=== PATIENT | female | born 1990 | race Hispanic/Latino ===

== ENCOUNTER 2017-11-29 16:47 | Observation (INO) | payer BC ==
[2018-01-11] MEDS ORDERED: EUTIROX PO (11:42)
[2018-01-11] MEDS ORDERED: PREN-154 PO (11:42)
[2018-01-11] MEDS ORDERED: OMEP-272 PO (11:42)
== END 2017-11-29 18:06 | disposition home or self-care (01) ==
LOC: LDH 16:47
PROVIDERS: ADMIT Obstetrics & Gynecology; ATTEND Obstetrics & Gynecology
DX: O36.8130 Decreased fetal movements, third trimester, not applicable or unspecified (principal); Z86.32 Personal history of gestational diabetes; Z3A.38 38 weeks gestation of pregnancy
CPT/HCPCS: 59025; 76819; G0378 ×2

== ENCOUNTER 2017-12-05 12:16 | Inpatient (IN) | payer BC ==
[~2017-12-05] VITALS: Ht 162.6 cm; Wt 78.9 kg
[2017-12-05] MEDS ORDERED: LACTATED RINGERS 1000ML 1,000 ML IV PRN (12:23)
[2017-12-05] MEDS ORDERED: DINOPROSTONE 10 MG VAGINAL SUPP VG SCH (12:30)
[2017-12-05] MEDS ORDERED: OXYTOCIN-LR 20 UNITS/1000 ML 1,000 ML IV SCH (12:30)
[2017-12-05] MEDS ORDERED: LACTATED RINGERS 1000ML 1,000 ML IV ONE (12:37)
[2017-12-05 13:39] LABS: HEMATOCRIT 36.1 % (36-48); MEAN CORPUSCULAR HEMOGLOBIN 31.8 pg (27.0-33.0); MEAN CORPUSCULAR HGB CONC 35.2 g/dL (32.0-36.0); MEAN CORPUSCULAR VOLUME 90.3 fL (79-99); PLATELET COUNT (AUTO) 113 K/uL (130-400); RED CELL DISTRIBUTION WIDTH 13.8 % (11.0-15.5); WHITE BLOOD COUNT (AUTO) 7.2 K/uL (4.8-10.8)
[2017-12-05 14:36] LABS: BASOPHILS % (AUTO) 0.6 % (0.0-5.0); HEMATOCRIT 37.1 % (36-48); LYMPHOCYTES % (AUTO) 20.4 % (21.0-51.0); MEAN CORPUSCULAR HEMOGLOBIN 31.6 pg (27.0-33.0); MEAN CORPUSCULAR HGB CONC 34.8 g/dL (32.0-36.0); MEAN CORPUSCULAR VOLUME 90.9 fL (79-99); PLATELET COUNT (AUTO) 110 K/uL (130-400); RED BLOOD CELL COUNT(AUTO) 4.08 MIL/uL (4.00-5.50); RED CELL DISTRIBUTION WIDTH 13.7 % (11.0-15.5); WHITE BLOOD COUNT (AUTO) 7.7 K/uL (4.8-10.8)
[2017-12-05 14:41] LABS: APPEARANCE,URINE Cloudy (CLEAR); BILIRUBIN,URINE Small (NEGATIVE); COLOR,URINE Dark Yellow (YELLOW); GLUCOSE, URINE (UA) Negative (NEGATIVE); KETONES,URINE Negative (NEGATIVE); LEUKOCYTE ESTERASE ,URINE Moderate (NEGATIVE); NITRATE,URINE Negative (NEGATIVE); OCCULT BLOOD,URINE Moderate (NEGATIVE); PH,URINE 5.5 (5.0-8.0); PROTEIN,URINE POS 2+ (NEGATIVE)
[2017-12-05 14:44] LABS: CREATININE 0.8 mg/dL (0.5-1.5); POTASSIUM 3.8 mmol/L (3.5-5.1)
[2017-12-05 14:45] LABS: INR 0.92 (0.85-1.15); PARTIAL THROMBOPLASTIN TIME 30.5 SEC (26.3-35.5); PROTHROMBIN TIME 9.7 SEC (9.6-11.6)
[2017-12-05 14:50] LABS: ALBUMIN 2.4 g/dL (3.5-5.0); BILIRUBIN,TOTAL 0.2 mg/dL (0.2-1.0); TOTAL PROTEIN, SERUM 5.8 g/dL (6.0-8.3); URIC ACID 5.3 mg/dL (2.6-7.2)
[2017-12-05 15:03] LABS: BACTERIA,URINE Many /HPF (None Seen); RBC,URINE None Seen /HPF (0-1); WBC,URINE 26-50 /HPF (0-1)
[2017-12-05 15:04] LABS: MUCUS,URINE Many LPF (None Seen); SQUAMOUS EPITHELIAL CELL,UR 50-100 /HPF (0-2)
[2017-12-05] MEDS ORDERED: OXYTOCIN 10 USP UNITS/ML ONE (15:06)
[2017-12-06] MEDS ORDERED: OXYTOCIN 10 USP UNITS/ML 20 UNIT in LACTATED RINGERS 1000ML 1,000 ML IV SCH ×2 (03:00→05:00)
[2017-12-06] MEDS ORDERED: LACTATED RINGERS 1000ML 1,000 ML IV ONE (04:29)
[2017-12-06] MEDS ORDERED: OXYTOCIN 10 USP UNITS/ML ONE ×2 (04:29→12:30)
[2017-12-06 08:21] LABS: HEPATITIS Bs ANTIGEN SCREEN P Negative (Negative)
[2017-12-06] MEDS ORDERED: PROMETHAZINE HCL 25 MG/ML 1ML AMPULE IM ONE (08:26)
[2017-12-06] MEDS ORDERED: MEPERIDINE-PF 50 MG/ML SYG ONE (08:26)
[2017-12-06] MEDS ORDERED: MEPERIDINE-PF 50 MG/ML SYG IVP SCH (08:30)
[2017-12-06] MEDS ORDERED: PROMETHAZINE HCL 25 MG/ML 1ML AMPULE IM SCH (08:30)
[2017-12-06] MEDS ORDERED: DIPH,PERTUSS(ACELL),TET VAC/PF 0.5 ML VIAL IM PRN (12:45)
[2017-12-06] MEDS ORDERED: MEASLES/MUMPS/RUBELLA VACCINE, LIVE 0.5 ML/VIAL SQ PRN (12:45)
[2017-12-06] MEDS ORDERED: ACETAMINOPHEN 325 MG TAB PO PRN (12:45)
[2017-12-06] MEDS ORDERED: BENZOCAINE/LANOLIN/ALOE VERA 60 ML AEROSOL TP PRN (12:45)
[2017-12-06] MEDS ORDERED: LANOLIN 30GM OINTMENT TP PRN (12:45)
[2017-12-06] MEDS ORDERED: WITCH HAZEL 1 PAD TP PRN (12:45)
[2017-12-06 14:15] VITALS: BP 127/90
[2017-12-06 15:39] VITALS: BP 134/89
[2017-12-06] MEDS: IBUPROFEN 600 MG TABLET PO PRN (16:32)
[2017-12-06 19:50] VITALS: BP 129/79
[2017-12-06] MEDS: DOCUSATE SODIUM 100 MG CAP PO SCH (21:10)
[2017-12-06 23:37] VITALS: BP 120/75
[2017-12-07 04:18] VITALS: BP 125/75
[2017-12-07] MEDS: IBUPROFEN 600 MG TABLET PO PRN (04:18)
[2017-12-07 05:46] LABS: HEMATOCRIT 31.8 % (36-48); MEAN CORPUSCULAR HEMOGLOBIN 31.5 pg (27.0-33.0); MEAN CORPUSCULAR HGB CONC 33.4 g/dL (32.0-36.0); MEAN CORPUSCULAR VOLUME 94.2 fL (79-99); RED BLOOD CELL COUNT(AUTO) 3.38 MIL/uL (4.00-5.50); RED CELL DISTRIBUTION WIDTH 13.8 % (11.0-15.5)
[2017-12-07 07:58] VITALS: BP 125/80
[2017-12-07] MEDS: DOCUSATE SODIUM 100 MG CAP PO SCH (09:18)
[2017-12-07 11:14] VITALS: BP 123/80
[2017-12-07 13:42] LABS: HEMATOCRIT 28.7 % (36-48)
[2018-01-11] MEDS ORDERED: OMEP-272 PO (11:42)
[2018-01-11] MEDS ORDERED: EUTIROX PO (11:42)
[2018-01-11] MEDS ORDERED: PREN-154 PO (11:42)
== END 2017-12-07 14:00 | disposition home or self-care (01) | DRG 775 ==
LOC: WSH 12:16 → OBSVTOIN 12:16 → WSH 12-06 14:01
PROVIDERS: ADMIT Obstetrics & Gynecology; ATTEND Obstetrics & Gynecology
PROC: 10E0XZZ Delivery of Products of Conception, External Approach (ICD-10-PCS; principal; 2017-12-06)
PROC: 0W8NXZZ Division of Female Perineum, External Approach (ICD-10-PCS; 2017-12-06)
PROC: 3E0234Z Introduction of Serum, Toxoid and Vaccine into Muscle, Percutaneous Approach (ICD-10-PCS; 2017-12-06)
PROC: 3E0134Z Introduction of Serum, Toxoid and Vaccine into Subcutaneous Tissue, Percutaneous Approach (ICD-10-PCS; 2017-12-06)
PROC: 3E0P7VZ Introduction of Hormone into Female Reproductive, Via Natural or Artificial Opening (ICD-10-PCS; 2017-12-06)
DX: O64.0XX0 Obstructed labor due to incomplete rotation of fetal head, not applicable or unspecified (principal); O24.410 Gestational diabetes mellitus in pregnancy, diet controlled; O69.81X0 Labor and delivery complicated by cord around neck, without compression, not applicable or unspecified; Z23 Encounter for immunization; Z37.0 Single live birth; Z3A.39 39 weeks gestation of pregnancy; O69.89X0 Labor and delivery complicated by other cord complications, not applicable or unspecified
CPT/HCPCS: 36415; 80053; 81001; 84550; 85014; 85018; 85025; 85027; 85384; 85610; 85730; 86592; 86850; 86900; 86901; 87340; A4351; J2175; J2550; J2590; J7120

== ENCOUNTER 2018-01-12 10:24 | Day surgery (SDC) | payer BC ==
[~2018-01-12] VITALS: Ht 167.6 cm; Wt 64.8 kg
[~2018-01-12 10:24] MED LIST: EUTIROX PO; OMEP-272 PO; PREN-154 PO; SODIUM CHLORIDE 0.9% 1000ML 1,000 ML IV ONE
[2018-01-12] MEDS ORDERED: ISOVUE-370 50ML VIAL IV ONE (10:44)
[2018-01-12 11:35] LABS: CREATININE 0.8 mg/dL (0.5-1.5); POTASSIUM 3.9 mmol/L (3.5-5.1)
[2018-01-12 11:40] LABS: ALBUMIN 3.8 g/dL (3.5-5.0); BILIRUBIN,TOTAL 0.4 mg/dL (0.2-1.0); TOTAL PROTEIN, SERUM 7.4 g/dL (6.0-8.3)
[2018-01-12 11:54] VITALS: BP 119/88
[2018-01-12] MEDS ORDERED: INDOMETHACIN 50 MG SUPP.RECT RC SCH (12:30)
== END 2018-01-12 13:15 | disposition home or self-care (01) ==
LOC: ENDO 10:24 → DAH 10:24 → ENDO 13:15
PROVIDERS: ATTEND Internal Medicine
DX: K80.20 Calculus of gallbladder without cholecystitis without obstruction (principal); K83.8 Other specified diseases of biliary tract; K31.89 Other diseases of stomach and duodenum; K21.9 Gastro-esophageal reflux disease without esophagitis; K59.00 Constipation, unspecified; E03.9 Hypothyroidism, unspecified; Z98.890 Other specified postprocedural states; Z79.899 Other long term (current) drug therapy
CPT/HCPCS: 36415; 43237; 80053; 84703; A4606; J7030; 43231; Q9967

== ENCOUNTER 2018-01-27 21:15 | Emergency (ER) | payer BC ==
[~2018-01-27 21:15] MED LIST changes: -SODIUM CHLORIDE 0.9% 1000ML 1,000 ML IV ONE
[2018-01-27 21:43] LABS: APPEARANCE,URINE Clear (CLEAR); BILIRUBIN,URINE Small (NEGATIVE); COLOR,URINE Dark Yellow (YELLOW); GLUCOSE, URINE (UA) Negative (NEGATIVE); KETONES,URINE >=80 mg/dL (NEGATIVE); LEUKOCYTE ESTERASE ,URINE Small (NEGATIVE); NITRATE,URINE Negative (NEGATIVE); OCCULT BLOOD,URINE Negative (NEGATIVE); PH,URINE 5.5 (5.0-8.0); PROTEIN,URINE Trace (NEGATIVE)
[2018-01-27 21:45] LABS: BASOPHILS % (AUTO) 0.7 % (0.0-5.0); EOSINOPHILS % (AUTO) 0.5 % (0.0-8.0); HEMATOCRIT 40.2 % (36-48); LYMPHOCYTES % (AUTO) 14.1 % (21.0-51.0); MEAN CORPUSCULAR HEMOGLOBIN 30.7 pg (27.0-33.0); MEAN CORPUSCULAR HGB CONC 34.6 g/dL (32.0-36.0); MEAN CORPUSCULAR VOLUME 88.9 fL (79-99); MONOCYTES % (AUTO) 5.3 % (3.0-13.0); NEUTROPHILS % (AUTO) 79.4 % (40.0-77.0); PLATELET COUNT (AUTO) 244 K/uL (130-400); RED BLOOD CELL COUNT(AUTO) 4.53 MIL/uL (4.00-5.50); RED CELL DISTRIBUTION WIDTH 12.5 % (11.0-15.5); WHITE BLOOD COUNT (AUTO) 10.3 K/uL (4.8-10.8)
[2018-01-27 21:51] LABS: HCG,QUAL RESULT NEGATIVE (NEGATIVE)
[2018-01-27 21:52] LABS: BACTERIA,URINE None Seen /HPF (None Seen); MUCUS,URINE Many LPF (None Seen); RBC,URINE None Seen /HPF (0-1)
[2018-01-27 21:53] LABS: CREATININE 0.9 mg/dL (0.5-1.5); POTASSIUM 3.5 mmol/L (3.5-5.1)
[2018-01-27 21:58] LABS: ALBUMIN 4.2 g/dL (3.5-5.0); BILIRUBIN,TOTAL 1.1 mg/dL (0.2-1.0); TOTAL PROTEIN, SERUM 7.8 g/dL (6.0-8.3)
[2018-01-27] MEDS ORDERED: 0.9% SODIUM CHLORIDE 1000 ML IV BAG IV ONE (22:04)
[2018-01-27] MEDS ORDERED: ONDANSETRON HCL 4 MG/2 ML VIAL IVP ONE (22:04)
[2018-01-27] MEDS ORDERED: KETOROLAC TROMETHAMINE 30MG/ML ONE (22:28)
== END 2018-01-27 23:10 | disposition home or self-care (01) ==
LOC: EDH 21:15
DX: K80.50 Calculus of bile duct without cholangitis or cholecystitis without obstruction (principal); Z79.899 Other long term (current) drug therapy; E07.9 Disorder of thyroid, unspecified
CPT/HCPCS: 36415; 80053; 81001; 81025; 82150; 83690; 85025; 96361; 96374; 99284; J2405; J7030; J1885

== ENCOUNTER 2022-02-01 05:35 | Day surgery (SDC) | payer BC ==
[2022-01-27 16:06] LABS: BASOPHILS % (AUTO) 0.7 % (0.0-5.0); EOSINOPHILS % (AUTO) 7.1 % (0.0-8.0); HEMATOCRIT 38.7 % (36-48); LYMPHOCYTES % (AUTO) 34.3 % (21.0-51.0); MEAN CORPUSCULAR HEMOGLOBIN 28.2 pg (27.0-33.0); MEAN CORPUSCULAR HGB CONC 34.9 g/dL (32.0-36.0); MEAN CORPUSCULAR VOLUME 80.8 fL (79-99); MONOCYTES % (AUTO) 8.7 % (3.0-13.0); PLATELET COUNT (AUTO) 238 K/uL (130-400); RED BLOOD CELL COUNT(AUTO) 4.79 MIL/uL (4.00-5.50); RED CELL DISTRIBUTION WIDTH 13.9 % (11.0-15.5); WHITE BLOOD COUNT (AUTO) 5.7 K/uL (4.8-10.8)
[2022-01-27 16:08] LABS: APPEARANCE,URINE CLEAR (CLEAR); BILIRUBIN,URINE NEGATIVE (NEGATIVE); COLOR,URINE YELLOW (YELLOW); GLUCOSE, URINE (UA) NEGATIVE (NEGATIVE); KETONES,URINE NEGATIVE (NEGATIVE); LEUKOCYTE ESTERASE ,URINE NEGATIVE (NEGATIVE); NITRATE,URINE NEGATIVE (NEGATIVE); OCCULT BLOOD,URINE NEGATIVE (NEGATIVE); PROTEIN,URINE TRACE mg/dL (NEGATIVE); UROBILINOGEN,URINE 0.2 mg/dL (0.2-1.0)
[2022-01-27 16:22] LABS: INR 1.21 (0.85-1.15)
[2022-01-27 16:23] LABS: PARTIAL THROMBOPLASTIN TIME 44.1 SEC (26.3-35.5)
[2022-01-27 16:42] LABS: BACTERIA,URINE Few /HPF (None Seen); RBC,URINE 0-1 /HPF (0-1); WBC,URINE 0-1 /HPF (0-1)
[2022-01-27 16:43] LABS: SQUAMOUS EPITHELIAL CELL,UR Few /HPF (0-2)
[2022-01-28 11:21] VITALS: BP 178/95
[~2022-02-01] VITALS: Ht 162.6 cm; Wt 82.2 kg
[2022-02-01] VITALS (18 sets, daily range): BP systolic 121–143; BP diastolic 74–99
[~2022-02-01 05:35] MED LIST changes: -EUTIROX PO; +LEVO175C2 PO; -OMEP-272 PO; +ORAL CONTRACEPTIVE PO; -PREN-154 PO
[2022-02-01] MEDS ORDERED: LACTATED RINGERS 1000ML 1,000 ML IV ONE (07:39)
[2022-02-01] MEDS ORDERED: GLYCOPYRROLATE 1 MG/5 ML SYRINGE ONE (09:53)
[2022-02-01] MEDS ORDERED: FENTANYL CITRATE PF 50 MCG/1 ML 2ML VIAL ONE ×2 (09:53→12:05)
[2022-02-01] MEDS ORDERED: MIDAZOLAM HCL 1 MG/ML 2ML VIAL ONE (09:53)
[2022-02-01] MEDS ORDERED: PROPOFOL 10 MG/ML 20ML VIAL IV ONE (09:53)
[2022-02-01] MEDS ORDERED: ROCURONIUM 10MG/1ML SYR 10 MG/ML ML ONE (09:54)
[2022-02-01] MEDS ORDERED: CEFAZOLIN SODIUM 1 GM VIAL ONE (12:07)
[2022-02-01] MEDS ORDERED: NEOSTIGMINE 5MG/5ML SYR IV ONE (13:12)
[2022-02-01] MEDS ORDERED: MEPERIDINE-PF 25 MG/ML SYG ONE (13:53)
== END 2022-02-01 15:30 | disposition home or self-care (01) ==
LOC: DAH 05:35
PROVIDERS: ATTEND Obstetrics & Gynecology
DX: D27.1 Benign neoplasm of left ovary (principal); D27.0 Benign neoplasm of right ovary; K21.9 Gastro-esophageal reflux disease without esophagitis; E89.0 Postprocedural hypothyroidism; Z82.49 Family history of ischemic heart disease and other diseases of the circulatory system; Z80.9 Family history of malignant neoplasm, unspecified; Z79.01 Long term (current) use of anticoagulants; Z90.49 Acquired absence of other specified parts of digestive tract
CPT/HCPCS: 84703; 85025; 85610; 85730; 86850 ×2; 86900 ×2; 86901 ×2; 81001; 36415 ×2; 87635; 58925; 81025; C9803; A6260; A4663; A4351; A4606; A4344; J7120; J3010 ×2; J0690; J3490; J2710; J2250; J2704; J2175; C1769 ×2; A4649 ×2; A4215 ×2; A4223; A4222; A4221